=== PATIENT | female | born 1945 | race Caucasian/White ===

== ENCOUNTER → 2017-10-16 | Outpatient (CLI) | payer MEDICARE, BC | LOC: MC.RAD 10:40 | DX: Z12.31 Encounter for screening mammogram for malignant neoplasm of breast (principal) ==

== ENCOUNTER → 2018-08-26 | Outpatient (CLI) | payer MEDICARE, BC | LOC: COL.VAS 10:39 | DX: R42 Dizziness and giddiness (principal) ==

== ENCOUNTER → 2018-12-16 | Outpatient (CLI) | payer MEDICARE, BC | LOC: MC.RAD 08:28 | DX: Z12.31 Encounter for screening mammogram for malignant neoplasm of breast (principal) ==

== ENCOUNTER → 2020-04-03 | Outpatient (CLI) | payer MEDICARE, BC | LOC: MC.RAD 10:31 | DX: Z12.31 Encounter for screening mammogram for malignant neoplasm of breast (principal) ==

== ENCOUNTER → 2021-06-04 | Outpatient (CLI) | payer MEDICARE, BC | LOC: MC.RAD 10:45 | DX: Z12.31 Encounter for screening mammogram for malignant neoplasm of breast (principal); Z13.820 Encounter for screening for osteoporosis ==

== ENCOUNTER 2021-10-04 13:31 | Outpatient (CLI) | payer MEDICARE, BC ==
[2021-10-04 13:30] VITALS: BP 136/61; PULSE 67; TEMP 98.5
[2021-10-04 13:45] VITALS: BP 110/72; PULSE 66; TEMP 98.5
[2021-10-04 14:00] VITALS: BP 113/71; PULSE 66; TEMP 98.5
[2021-10-04] MEDS ORDERED: SYNTHROID0.075 MG/T PO (14:04)
[2021-10-04] MEDS ORDERED: EFFIENT10 MG PO (14:05)
[2021-10-04] MEDS ORDERED: ASPIRIN 81M81 MG/TA2 PO (14:06)
[2021-10-04] MEDS ORDERED: CALCIUM 600MG+D1 TAB PO (14:06)
[2021-10-04] MEDS ORDERED: CLARITIN 1010 MG/TAB PO (14:06)
[2021-10-04] MEDS ORDERED: VITAMIN B COMPL1 SGL PO (14:07)
[2021-10-04] MEDS ORDERED: LUTEIN 15 MG-0.1 SGL PO (14:12)
[2021-10-04] MEDS ORDERED: MOVE FREE JOIN1 EACH PO (14:14)
[2021-10-04 14:15] VITALS: BP 111/86; PULSE 67; TEMP 98.5
[2021-10-04] MEDS ORDERED: MULTI VITAMINS1 TAB PO (14:15)
[2021-10-04] MEDS ORDERED: ACIDOPHILIS PO (14:15)
[2021-10-04] MEDS ORDERED: NORVASC2.5 MG PO (14:16)
[2021-10-04] MEDS ORDERED: PRAVACHOL80 MG PO (14:16)
[2021-10-04] MEDS ORDERED: NITROSTAT0.4 MG/TAB SL (14:16)
[2021-10-04] MEDS ORDERED: LEVSIN0.125 M1 PO (14:18)
[2021-10-04] MEDS ORDERED: LYSINE1000 MG PO (14:19)
[2021-10-04] MEDS ORDERED: VITAMIN D31000 I1 PO (14:19)
[2021-10-04 14:30] VITALS: BP 109/80; PULSE 62; TEMP 98.5
[2021-10-04 14:40] VITALS: BP 102/86; PULSE 63; TEMP 98.5
== END 2021-10-04 15:00 | disposition home or self-care (01) ==
LOC: EUO 13:31
DX: U07.1 COVID-19 (principal); E66.9 Obesity, unspecified; N18.9 Chronic kidney disease, unspecified; I25.10 Atherosclerotic heart disease of native coronary artery without angina pectoris
CPT/HCPCS: M0247; Q0247

== ENCOUNTER → 2022-06-09 | Outpatient (CLI) | payer MEDICARE, BC ==
[~2022-06-09] MED LIST: ACIDOPHILIS PO; ASPIRIN 81M81 MG/TA2 PO; CALCIUM 600MG+D1 TAB PO; CLARITIN 1010 MG/TAB PO; EFFIENT10 MG PO; LEVSIN0.125 M1 PO; LUTEIN 15 MG-0.1 SGL PO; LYSINE1000 MG PO; MOVE FREE JOIN1 EACH PO; MULTI VITAMINS1 TAB PO; NITROSTAT0.4 MG/TAB SL; NORVASC2.5 MG PO; PRAVACHOL80 MG PO; SYNTHROID0.075 MG/T PO; VITAMIN B COMPL1 SGL PO; VITAMIN D31000 I1 PO
== END ==
LOC: MC.RAD 12:50
DX: N63.20 Unspecified lump in the left breast, unspecified quadrant (principal)

== ENCOUNTER 2022-10-01 13:36 | Emergency (ER) | payer MEDICARE, BC ==
[~2022-10-01] VITALS: Ht 165.1 cm; Wt 90.9 kg
[2022-10-01 14:22] VITALS: TEMP 98.5
[2022-10-01 15:47] LABS: HEMATOCRIT 45.3 % (37.0-47.0); HEMOGLOBIN 15.5 g/dl (12.5-16.0); MEAN CELL VOLUME 91 fl (80.0-100.0); MEAN CORPUSCULAR HEMOGLOBIN 31 pg (27-31); MEAN CORPUSCULAR HGB CONC 34 g/dl (33.0-37.0); MEAN PLATELET VOLUME 10.9 fl (7.4-10.4); PLATELET COUNT 192 K/mm3 (130-400); RED BLOOD COUNT 4.96 M/mm3 (4.10-5.30)
[2022-10-01 15:57] LABS: ALBUMIN 3.9 gm/dL (3.4-4.8); BILIRUBIN,TOTAL 0.9 mg/dL (0.2-1.2); CALCIUM 9.6 mg/dL (8.4-10.2); CREATININE, serum 0.91 mg/dL (0.57-1.11); POTASSIUM 4.2 mmol/L (3.5-4.5)
[2022-10-01 17:07] LABS: BAND 27 % (0-10); EOSINOPHIL 2 % (0-4); LYMPHOCYTE 5 % (20.0-51.0); METAMYELOCYTE 1 % (0-0); NEUTROPHILS 60 % (42.0-75.2); PLATELET ESTIMATE NORMAL (NORMAL)
[2022-10-01] MEDS ORDERED: ZOFRAN ODT4 MG PO (17:22)
[2022-10-01 17:36] VITALS: BP 128/78; PULSE 67
[2023-03-12] MEDS ORDERED: EPA FISH OIL1 SGL PO (17:06)
[2023-03-12] MEDS ORDERED: XALATAN EYE DROPS OD (17:07)
[2023-03-12] MEDS ORDERED: XARELTO2.5 MG PO (17:07)
[2023-03-12] MEDS ORDERED: CRESTOR20 MG PO (17:10)
[2023-03-12] MEDS ORDERED: TYLENOL 500MG500 MG PO (18:18)
[2023-03-13] MEDS ORDERED: NITRO-DUR0.4 MG/PAT TD (11:50)
== END 2022-10-01 17:38 | disposition home or self-care (01) ==
LOC: COL.ER 13:36
PROVIDERS: Physician Assistant
DX: R11.2 Nausea with vomiting, unspecified (principal); R19.7 Diarrhea, unspecified; R10.30 Lower abdominal pain, unspecified; Z28.310 Unvaccinated for COVID-19; Z87.891 Personal history of nicotine dependence
CPT/HCPCS: J2405; J7030; Q9967

== ENCOUNTER → 2023-09-22 | Outpatient (CLI) | payer MEDICARE, BC ==
[~2023-09-22] MED LIST changes: +CRESTOR20 MG PO; +EPA FISH OIL1 SGL PO; +NITRO-DUR0.4 MG/PAT TD; +TYLENOL 500MG500 MG PO; +XALATAN EYE DROPS OD; +XARELTO2.5 MG PO; +ZOFRAN ODT4 MG PO
== END ==
LOC: MC.RAD 12:53
DX: N64.4 Mastodynia (principal)

== ENCOUNTER → 2024-07-21 | Outpatient (CLI) | payer MEDICARE, BC | LOC: COL.LAB 11:06 | DX: M79.662 Pain in left lower leg (principal) ==